=== PATIENT | female | born 1955 | race Caucasian/White ===

== ENCOUNTER 2017-05-09 13:36 | Emergency (ER) | payer OTHER ==
[~2017-05-09] VITALS: Ht 160 cm; Wt 78.9 kg
[~2017-05-09 13:36] MED LIST: ASPI-807 PO; ATEN25TA PO; BECL8.7A5 IH; CHLO4TAB PO; DICY10CA37 PO; FAMO-39 PO; FENO200C PO; INSU3INS6 SQ; LEVO125T8 PO; METF500T4 PO; METH500T6 PO; MONT10TA22 PO; TRAM50TA2 PO; TRIA10.8 NS
--- NOTE | 2017-05-09 13:45 | NUR ---
PT TO ED ROOM 02. BACK PAIN, SINCE TUESDAY- GETTING WORSE: TOOK METOCARBAM 500 PO AT 0900AM. A/A/O. SIDE RALS UP. HOB ELEVATED. SEEN AND EVALUATED BY ED PROVIDER.
[2017-05-09] MEDS ORDERED: MORPHINE SULFATE INJ 4 MG/ML DISP.SYRIN ONE (14:24)
[2017-05-09] MEDS ORDERED: MORPHINE SULFATE INJ 2 MG/ML DISP.SYRIN ONE (14:25)
[2017-05-09] MEDS ORDERED: ONDANSETRON 4 MG TAB.RAPDIS ONE (14:25)
[2017-05-09] MEDS ORDERED: MORPHINE SULFATE INJ 2 MG/ML DISP.SYRIN IM ONE (14:30)
[2017-05-09] MEDS ORDERED: ONDANSETRON 4 MG TAB.RAPDIS SL ONE (14:30)
[2017-05-09 14:42] VITALS: BP 127/81
--- NOTE | 2017-05-09 14:42 | NUR ---
Patient discharged to home in stable condition. Written and verbal after care instructions given. Patient verbalizes understanding of instruction. ambulatory with a steady gait.
== END 2017-05-09 14:43 | disposition home or self-care (01) ==
LOC: ER 13:38
DX: M54.42 Lumbago with sciatica, left side (principal); E11.9 Type 2 diabetes mellitus without complications; I10 Essential (primary) hypertension; J45.909 Unspecified asthma, uncomplicated; M19.90 Unspecified osteoarthritis, unspecified site; Z79.4 Long term (current) use of insulin; Z79.82 Long term (current) use of aspirin; Z90.710 Acquired absence of both cervix and uterus; Z90.49 Acquired absence of other specified parts of digestive tract; Z88.6 Allergy status to analgesic agent; Z88.5 Allergy status to narcotic agent; Z88.8 Allergy status to other drugs, medicaments and biological substances
CPT/HCPCS: 96372; 99283; A4606; J2270 ×4; Q0162 ×2; Z7610

== ENCOUNTER 2017-06-27 13:52 | Emergency (ER) | payer OTHER ==
[~2017-06-27] VITALS: Ht 160 cm; Wt 79.4 kg
--- NOTE | 2017-06-27 14:10 | NUR ---
PRESENTS SELF TO ED DT RIGTH EYE PRESSURE-LIKE PAIN X 4 DAYS. REPORTED OCASIONAL BLACK VISION. PATIENT DENIES INJURY, PT WITH HX OF DIABETES. PENDING MD BENTLEY
[2017-06-27] MEDS ORDERED: FLUORESCEIN SODIUM OPHTH 1 EA STRIP ONE (14:23)
[2017-06-27] MEDS ORDERED: TETRACAINE HCL/PF 0.5% UD 2 ML BOTTLE ONE (14:23)
[2017-06-27] MEDS ORDERED: TETRACAINE HCL/PF 0.5% UD 2 ML BOTTLE RIGHTEYE ONE (14:30)
[2017-06-27] MEDS ORDERED: TONO PEN in ED SUPPLY ONICELL 1 EA MC ONE (14:30)
[2017-06-27] MEDS ORDERED: FLUORESCEIN SODIUM OPHTH 1 EA STRIP OP ONE (14:30)
--- NOTE | 2017-06-27 14:35 | NUR ---
MD KLINE AT
--- NOTE | 2017-06-27 14:41 | NUR ---
VISUAL ACUITY LEFT 20/25 RIGHT 20/25 BOTH EYES 20/20
--- NOTE | 2017-06-27 14:55 | NUR ---
CALLED PHARMACY FOR EYE DROPS
[2017-06-27] MEDS ORDERED: MISCELLANEOUS MED 1 EA EA XX ONE (15:00)
[2017-06-27] MEDS ORDERED: PILOCARPINE 1% OPHT DROP 15 ML BOTTLE OP ONE (15:00)
[2017-06-27] MEDS ORDERED: TIMOLOL 0.5% SOLN OPHTH 5 ML BOTTLE OP ONE (15:00)
[2017-06-27] MEDS ORDERED: [UNRECOGNIZED DRUG - OTHER] OP ONE (15:00)
--- NOTE | 2017-06-27 15:12 | NUR ---
CALLED [facility] SPOKE WITH [facility]ER[facility], ON THE PHONE WITH DR KLINE. EXPECTING A CALL BACK.
[2017-06-27] MEDS ORDERED: LATANOPROST EYE DROP 0.005% 2.5 ML BOTTLE RIGHTEYE SCH (15:30)
--- NOTE | 2017-06-27 16:15 | NUR ---
PAGED DR. TANG, FOR CONSULT. DR. TANG IS NOT AVAILABLE
[2017-06-27 16:25] VITALS: BP 128/85
--- NOTE | 2017-06-27 16:25 | NUR ---
Patient discharged to home in stable condition. Written and verbal after care instructions given. Patient verbalizes understanding of instruction.
== END 2017-06-27 16:29 | disposition home or self-care (01) ==
LOC: ER 13:54
DX: H40.9 Unspecified glaucoma (principal); E11.9 Type 2 diabetes mellitus without complications; I10 Essential (primary) hypertension; M54.30 Sciatica, unspecified side; J45.909 Unspecified asthma, uncomplicated; Z79.4 Long term (current) use of insulin; Z79.82 Long term (current) use of aspirin; Z88.6 Allergy status to analgesic agent; Z88.8 Allergy status to other drugs, medicaments and biological substances; Z90.49 Acquired absence of other specified parts of digestive tract; Z90.710 Acquired absence of both cervix and uterus
CPT/HCPCS: 70480; 99285; A4606; Z7610

== ENCOUNTER 2017-08-08 09:58 | Emergency (ER) | payer OTHER ==
[~2017-08-08] VITALS: Ht 157.5 cm; Wt 77.1 kg
--- NOTE | 2017-08-08 10:09 | NUR ---
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 AFEBRILE. DENIES NAUSEA AND VOMITTING. VSS
--- NOTE | 2017-08-08 10:10 | NUR ---
MD DAVISON AT BEDSIDE
[2017-08-08 10:19] LABS: APPEARANCE,URINE Slightly Cloudy (CLEAR); BILIRUBIN,URINE SMALL (NEGATIVE); BLOOD, URINE Large Ery/uL (NEGATIVE); COLOR,URINE Red (YELLOW); KETONES,URINE Negative (NEGATIVE); LEUKOCYTE ESTERASE ,URINE Trace (NEGATIVE); NITRITE, URINE Negative (NEGATIVE); PH,URINE 5.5 (5.0-8.0); PROTEIN,URINE 100 mg/dl (NEGATIVE); UGLUCOSE Negative (NEGATIVE); UROBILINOGEN,URINE 0.2 EU/dL (0.2)
[2017-08-08 10:27] LABS: BACTERIA,URINE None seen /HPF (None Seen); RBC,URINE TOO NUMEROUS TO COUN /HPF (0-2); SQUAMOUS EPITHELIAL CELL,UR Few /HPF (None Seen)
[2017-08-08 10:38] VITALS: BP 128/89
--- NOTE | 2017-08-08 10:38 | NUR ---
Patient discharged to home in stable condition. Written and verbal after care instructions given. Patient verbalizes understanding of instruction.
== END 2017-08-08 10:39 | disposition home or self-care (01) ==
LOC: ER 10:01
DX: N39.0 Urinary tract infection, site not specified (principal); R31.9 Hematuria, unspecified; I10 Essential (primary) hypertension; J45.909 Unspecified asthma, uncomplicated; E11.9 Type 2 diabetes mellitus without complications; Z90.49 Acquired absence of other specified parts of digestive tract; Z90.710 Acquired absence of both cervix and uterus; Z88.5 Allergy status to narcotic agent; Z88.6 Allergy status to analgesic agent; Z88.8 Allergy status to other drugs, medicaments and biological substances; Z79.4 Long term (current) use of insulin; Z79.82 Long term (current) use of aspirin
CPT/HCPCS: 81001; 87086; 99284; A4606; 81000-TC

== ENCOUNTER 2017-11-20 11:21 | Emergency (ER) | payer OTHER ==
[~2017-11-20] VITALS: Ht 162.6 cm; Wt 72.6 kg
[2017-11-20 11:25] VITALS: BP 128/77
[2017-11-20] MEDS ORDERED: CARISOPRODOL 350 MG TABLET ONE (11:52)
[2017-11-20] MEDS ORDERED: CARISOPRODOL 350 MG TABLET PO ONE (12:00)
== END 2017-11-20 12:02 | disposition home or self-care (01) ==
LOC: ER 11:23
DX: M54.42 Lumbago with sciatica, left side (principal); I10 Essential (primary) hypertension; E11.9 Type 2 diabetes mellitus without complications; J45.909 Unspecified asthma, uncomplicated; K58.9 Irritable bowel syndrome, unspecified; Z90.710 Acquired absence of both cervix and uterus; Z90.49 Acquired absence of other specified parts of digestive tract; Z88.5 Allergy status to narcotic agent; Z88.6 Allergy status to analgesic agent; Z88.8 Allergy status to other drugs, medicaments and biological substances; Z79.4 Long term (current) use of insulin; Z79.82 Long term (current) use of aspirin
CPT/HCPCS: 99283; A4606; Z7610

== ENCOUNTER 2017-12-13 11:58 | Emergency (ER) | payer OTHER ==
[~2017-12-13] VITALS: Ht 160 cm; Wt 78.9 kg
[2017-12-13 12:08] VITALS: BP 135/80
[2017-12-13] MEDS ORDERED: ALBUTEROL FS 2.5 MG/3 ML VIAL.NEB NEB ONE (13:00)
[2017-12-13] MEDS ORDERED: predniSONE 20 MG TABLET PO ONE (13:00)
[2017-12-13] MEDS ORDERED: IPRATROPIUM NEB FS 0.5 MG/2.5 ML AMPUL.NEB NEB ONE (13:00)
[2017-12-13] MEDS ORDERED: predniSONE 20 MG TABLET ONE (13:05)
[2017-12-13] MEDS ORDERED: ALBUTEROL FS 2.5 MG/3 ML VIAL.NEB ONE (13:18)
[2017-12-13] MEDS ORDERED: IPRATROPIUM NEB FS 0.5 MG/2.5 ML AMPUL.NEB ONE (13:18)
--- NOTE | 2017-12-13 15:07 | NUR ---
Rx changed to Doxycline 100mg PO BID x [address] Torres after pharmacy recognized interaction between patients normal medication, Trazodone and newly prescribed Azithromycin (long QT-syndrome)
== END 2017-12-13 14:32 | disposition home or self-care (01) ==
LOC: ER 12:24
DX: J45.901 Unspecified asthma with (acute) exacerbation (principal); J22 Unspecified acute lower respiratory infection; E11.9 Type 2 diabetes mellitus without complications; I10 Essential (primary) hypertension; Z90.49 Acquired absence of other specified parts of digestive tract; Z90.710 Acquired absence of both cervix and uterus; Z88.6 Allergy status to analgesic agent; Z88.5 Allergy status to narcotic agent; Z88.8 Allergy status to other drugs, medicaments and biological substances; Z79.4 Long term (current) use of insulin; Z79.82 Long term (current) use of aspirin
CPT/HCPCS: 71045-TC; A4606; Z7610

== ENCOUNTER 2018-02-13 11:52 | Emergency (ER) | payer OTHER ==
[~2018-02-13] VITALS: Ht 160 cm; Wt 77.1 kg
[~2018-02-13 11:52] MED LIST changes: +METF-440 PO; -METF500T4 PO
[2018-02-13 11:57] VITALS: BP 140/75
== END 2018-02-13 12:42 | disposition home or self-care (01) ==
LOC: ER 11:53
DX: J20.9 Acute bronchitis, unspecified (principal); J45.909 Unspecified asthma, uncomplicated; E11.9 Type 2 diabetes mellitus without complications; I10 Essential (primary) hypertension; G89.29 Other chronic pain; Z90.710 Acquired absence of both cervix and uterus; Z90.49 Acquired absence of other specified parts of digestive tract; M54.30 Sciatica, unspecified side; M19.90 Unspecified osteoarthritis, unspecified site; Z88.5 Allergy status to narcotic agent; Z88.6 Allergy status to analgesic agent; Z88.8 Allergy status to other drugs, medicaments and biological substances; Z79.82 Long term (current) use of aspirin; Z79.4 Long term (current) use of insulin
CPT/HCPCS: A4606; Z7502; Z7610

== ENCOUNTER 2018-05-30 17:54 | Emergency (ER) | payer OTHER ==
[~2018-05-30] VITALS: Ht 160 cm; Wt 74.4 kg
[~2018-05-30 17:54] MED LIST changes: -METF-440 PO; +METF500T6 PO
[2018-05-30 19:00] LABS: APPEARANCE,URINE Clear (CLEAR); BILIRUBIN,URINE Negative (NEGATIVE); BLOOD, URINE Negative Ery/uL (NEGATIVE); COLOR,URINE Yellow (YELLOW); KETONES,URINE Negative (NEGATIVE); LEUKOCYTE ESTERASE ,URINE Negative (NEGATIVE); NITRITE, URINE Negative (NEGATIVE); PROTEIN,URINE Negative (NEGATIVE); UGLUCOSE Negative (NEGATIVE); UROBILINOGEN,URINE 0.2 EU/dL (0.2)
[2018-05-30 19:02] LABS: BASOPHILS # (AUTO) 0.1 /CMM (0.0-0.2); BASOPHILS % (AUTO) 2.3 % (0.0-2.0); EOSINOPHILS % (AUTO) 6.1 % (0.0-6.0); HEMATOCRIT 34 % (33-45); HEMOGLOBIN 12.5 g/dL (11.5-14.8); LYMPHOCYTES # (AUTO) 1.5 /CMM (0.8-4.8); LYMPHOCYTES % (AUTO) 23.7 % (20.0-44.0); MEAN CORPUSCULAR HEMOGLOBIN 29 PG (26.0-33.0); MEAN CORPUSCULAR HGB CONC 36 g/dl (31.0-36.0); MEAN CORPUSCULAR VOLUME 80 fL (82-100); MONOCYTES # (AUTO) 0.4 /CMM (0.1-1.30); MONOCYTES % (AUTO) 6.1 % (2.0-12.0); NEUTROPHILS # (AUTO) 3.9 /CMM (1.8-8.9); NEUTROPHILS % (AUTO) 61.8 % (43.0-81.0); PLATELET COUNT (AUTO) 260 /CMM (150-450); RDW COEFFICIENT OF VARIATION 12.8 (11.5-15.0); RED BLOOD CELL COUNT(AUTO) 4.27 MIL/uL (4.0-5.2); WHITE BLOOD COUNT (AUTO) 6.3 K/uL (4.3-11.0)
[2018-05-30 19:04] LABS: CALCIUM, SERUM 10.5 mg/dL (8.5-10.1); CREATININE 1.3 mg/dL (0.6-1.3); POTASSIUM 3.8 mmol/L (3.5-5.1)
[2018-05-30 19:10] LABS: BILIRUBIN,DIRECT 0.1 mg/dL (0.0-0.2); BILIRUBIN,TOTAL 0.4 mg/dL (0.2-1.0); TOTAL PROTEIN, SERUM 7.2 g/dL (6.4-8.2)
[2018-05-30 19:28] VITALS: BP 137/79
== END 2018-05-30 20:29 | disposition home or self-care (01) ==
LOC: ER 17:54
DX: R30.0 Dysuria (principal); R10.32 Left lower quadrant pain; J45.909 Unspecified asthma, uncomplicated; E11.9 Type 2 diabetes mellitus without complications; M51.17 Intervertebral disc disorders with radiculopathy, lumbosacral region; E66.9 Obesity, unspecified; M54.40 Lumbago with sciatica, unspecified side; Z90.710 Acquired absence of both cervix and uterus; Z90.49 Acquired absence of other specified parts of digestive tract; Z88.6 Allergy status to analgesic agent; Z88.8 Allergy status to other drugs, medicaments and biological substances; Z88.5 Allergy status to narcotic agent; Z79.82 Long term (current) use of aspirin; Z79.4 Long term (current) use of insulin
CPT/HCPCS: 36415; 80048; 80076; 81001; 83690; 85025; 99284; A4606; Z7610; 81000-TC

== ENCOUNTER 2018-07-03 10:13 | Emergency (ER) | payer OTHER ==
[~2018-07-03] VITALS: Ht 160 cm; Wt 74.4 kg
--- NOTE | 2018-07-03 10:28 | NUR ---
PATIENT TO ED LOWER BACK PAIN 06/26 RADIATING ON LEFT LEG SINCE TUESDAY.NO TRAUMA. PT IS AAO4, APPEARS IN NO AUTRE DISTERSS. RESPIRATION EVEN AND UNLABORED.VSS
[2018-07-03 10:33] VITALS: BP 129/72
--- NOTE | 2018-07-03 10:34 | NUR ---
Patient discharged to home in stable condition. Written and verbal after care instructions given. Patient verbalizes understanding of instruction.
== END 2018-07-03 10:34 | disposition home or self-care (01) ==
LOC: ER 10:21
DX: M54.5 Low back pain (principal); I10 Essential (primary) hypertension; J45.909 Unspecified asthma, uncomplicated; E11.9 Type 2 diabetes mellitus without complications; K58.9 Irritable bowel syndrome, unspecified; M19.90 Unspecified osteoarthritis, unspecified site; M54.30 Sciatica, unspecified side; Z90.49 Acquired absence of other specified parts of digestive tract; Z90.710 Acquired absence of both cervix and uterus; Z98.890 Other specified postprocedural states; Z88.6 Allergy status to analgesic agent; Z79.84 Long term (current) use of oral hypoglycemic drugs; Z79.4 Long term (current) use of insulin; Z79.82 Long term (current) use of aspirin; Z79.899 Other long term (current) drug therapy
CPT/HCPCS: 99283; A4606; Z7610

== ENCOUNTER 2019-01-30 18:44 | Emergency (ER) | payer OTHER ==
[~2019-01-30] VITALS: Ht 160 cm; Wt 69.4 kg
[~2019-01-30 18:44] MED LIST changes: +METF-440 PO; -METF500T6 PO
[2019-01-30 18:55] VITALS: BP 152/74
== END 2019-01-30 19:40 | disposition home or self-care (01) ==
LOC: ER 18:49
DX: H11.32 Conjunctival hemorrhage, left eye (principal); J45.909 Unspecified asthma, uncomplicated; I10 Essential (primary) hypertension; E11.9 Type 2 diabetes mellitus without complications; K58.9 Irritable bowel syndrome, unspecified; M54.30 Sciatica, unspecified side; Z90.710 Acquired absence of both cervix and uterus; Z90.49 Acquired absence of other specified parts of digestive tract; Z98.890 Other specified postprocedural states; Z88.6 Allergy status to analgesic agent; Z88.8 Allergy status to other drugs, medicaments and biological substances; Z79.84 Long term (current) use of oral hypoglycemic drugs; Z79.4 Long term (current) use of insulin; Z79.82 Long term (current) use of aspirin; Z79.899 Other long term (current) drug therapy

== ENCOUNTER 2019-03-25 10:24 | Emergency (ER) | payer OTHER ==
[~2019-03-25] VITALS: Ht 162.6 cm; Wt 68.5 kg
[2019-03-25 10:26] VITALS: BP 157/86
[2019-03-25] MEDS ORDERED: NAPROXEN 250 MG TABLET ONE (10:53)
[2019-03-25] MEDS ORDERED: CARISOPRODOL 350 MG TABLET ONE (10:53)
[2019-03-25] MEDS ORDERED: NAPROXEN 250 MG TABLET PO ONE (11:00)
[2019-03-25] MEDS ORDERED: CARISOPRODOL 350 MG TABLET PO ONE (11:00)
== END 2019-03-25 11:03 | disposition home or self-care (01) ==
LOC: ER 10:25
DX: S39.012A Strain of muscle, fascia and tendon of lower back, initial encounter (principal); I10 Essential (primary) hypertension; J45.909 Unspecified asthma, uncomplicated; E11.9 Type 2 diabetes mellitus without complications; K58.9 Irritable bowel syndrome, unspecified; M19.90 Unspecified osteoarthritis, unspecified site; M54.30 Sciatica, unspecified side; Z90.710 Acquired absence of both cervix and uterus; Z90.49 Acquired absence of other specified parts of digestive tract; Z98.890 Other specified postprocedural states; Z88.5 Allergy status to narcotic agent; Z88.6 Allergy status to analgesic agent; Z88.8 Allergy status to other drugs, medicaments and biological substances; Z79.84 Long term (current) use of oral hypoglycemic drugs; Z79.899 Other long term (current) drug therapy; Z79.82 Long term (current) use of aspirin; X58.XXXA Exposure to other specified factors, initial encounter; Y93.89 Activity, other specified; Y92.89 Other specified places as the place of occurrence of the external cause; Y99.8 Other external cause status

== ENCOUNTER 2019-04-10 09:44 | Emergency (ER) | payer OTHER ==
[~2019-04-10] VITALS: Ht 160 cm; Wt 68.0 kg
[2019-04-10] MEDS ORDERED: HYDROCODONE/APAP 10/325MG 1 EA TABLET ONE (10:22)
[2019-04-10] MEDS ORDERED: CARISOPRODOL 350 MG TABLET ONE (10:22)
[2019-04-10 10:30] VITALS: BP 142/79
[2019-04-10] MEDS ORDERED: CARISOPRODOL 350 MG TABLET PO ONE (10:30)
[2019-04-10] MEDS ORDERED: HYDROCODONE/APAP 10/325MG 1 EA TABLET PO ONE (10:30)
--- NOTE | 2019-04-10 10:41 | NUR ---
D/C TO [facility],AMBULATORY ,STEADY GAIT, TO WAIT FOR RIDE
== END 2019-04-10 10:41 | disposition home or self-care (01) ==
LOC: ER 09:44
DX: S39.012A Strain of muscle, fascia and tendon of lower back, initial encounter (principal); I10 Essential (primary) hypertension; J45.909 Unspecified asthma, uncomplicated; E11.9 Type 2 diabetes mellitus without complications; M54.40 Lumbago with sciatica, unspecified side; K58.9 Irritable bowel syndrome, unspecified; M19.90 Unspecified osteoarthritis, unspecified site; Z90.710 Acquired absence of both cervix and uterus; Z90.49 Acquired absence of other specified parts of digestive tract; Z98.890 Other specified postprocedural states; Z88.6 Allergy status to analgesic agent; Z88.8 Allergy status to other drugs, medicaments and biological substances; Z79.84 Long term (current) use of oral hypoglycemic drugs; Z79.899 Other long term (current) drug therapy; Z79.4 Long term (current) use of insulin; Z79.82 Long term (current) use of aspirin; X50.9XXA Other and unspecified overexertion or strenuous movements or postures, initial encounter; Y93.89 Activity, other specified; Y92.89 Other specified places as the place of occurrence of the external cause; Y99.8 Other external cause status

== ENCOUNTER 2019-04-20 10:54 | Emergency (ER) | payer OTHER ==
[~2019-04-20] VITALS: Ht 160 cm; Wt 68.5 kg
[2019-04-20 10:59] VITALS: BP 161/89
[2019-04-20] MEDS ORDERED: KETOROLAC TROMETHAMINE 15 MG/ML VIAL ONE (11:12)
[2019-04-20] MEDS ORDERED: KETOROLAC TROMETHAMINE INJ 60 MG/2 ML VIAL IM ONE (11:30)
== END 2019-04-20 11:23 | disposition home or self-care (01) ==
LOC: ER 10:56
DX: S33.5XXA Sprain of ligaments of lumbar spine, initial encounter (principal); I10 Essential (primary) hypertension; J45.909 Unspecified asthma, uncomplicated; K58.9 Irritable bowel syndrome, unspecified; E11.9 Type 2 diabetes mellitus without complications; Z90.710 Acquired absence of both cervix and uterus; Z90.49 Acquired absence of other specified parts of digestive tract; Z98.890 Other specified postprocedural states; Z88.8 Allergy status to other drugs, medicaments and biological substances; Z88.6 Allergy status to analgesic agent; Z79.82 Long term (current) use of aspirin; Z79.899 Other long term (current) drug therapy; Z79.84 Long term (current) use of oral hypoglycemic drugs; Z79.4 Long term (current) use of insulin; X58.XXXA Exposure to other specified factors, initial encounter; Y93.89 Activity, other specified; Y92.89 Other specified places as the place of occurrence of the external cause; Y99.8 Other external cause status
CPT/HCPCS: 96372; 99283; J1885